=== PATIENT | male | born 1945 | race Caucasian/White ===

== ENCOUNTER → 2017-11-28 17:19 | Outpatient (REF) | payer MEDICARE, OTHER, SELFPAY ==
[2017-11-28 20:33] LABS: Anion Gap 10.6 mmol/L (3-11); BUN 23 mg/dL (7-18); CO2 23.4 mmol/L (21.0-32.0); CREATININE 1.37 mg/dL (0.70-1.30); Calcium 8.9 mg/dL (8.5-10.1); Chloride 105 mmol/L (98-107); Estimated GFR 50.79 (mL/min/1.73m2); Glucose 108 mg/dL (70-100); Potassium 4.7 mmol/L (3.5-5.1); Sodium 139 mmol/L (136-145)
== END ==
LOC: NCHCN 17:19
PROVIDERS: PCP Internal Medicine; Visit Provider Internal Medicine
DX: I10 Essential (primary) hypertension (principal)
CPT/HCPCS: 80048

== ENCOUNTER 2017-11-29 22:41 | Emergency (ER) | payer MEDICARE, OTHER, SELFPAY ==
[2017-11-29 22:43] VITALS: BP 200/129; PULSE 88; RESP 14; TEMP 37; O2SAT 98
[2017-11-29 22:48] VITALS: RESP 14
--- NOTE | 2017-11-29 22:58 | ED.GENADUL ---
Disposition Clinical Impression: Hypertension Disposition: HOME Condition: Good Instructions: Hypertension (ED) Additional Instructions: You were given 5 mg of lisinopril this evening. Begin 5 mg of lisinopril daily for the next 2 days until seen in follow-up. Please follow-up with [facility] Friday as planned. Return if you develop persistent headache, changes to vision, chest pain, or any other acute concerns. Medical Decision Making - Medical Decision Making 72-year-old male who is noted climbing blood pressures over days time for which he was started on 10 mg of daily lisinopril yesterday. Did not take the medication today due to concerns of hypotension. He now presents with hypertension approximately 200/100. He has an unremarkable neurologic examination and is otherwise well. Reviewed available data. Labs drawn on November 28: Sodium 139, potassium 4.7, chloride 105, bicarb 23, BUN 23, creatinine 1.3, slightly elevated over recent baseline of 1.1-1.2 Patient given 5 mg of lisinopril, observed, blood pressure repeated and is 140/93. He has an appointment for follow-up with Dr. Michael on Friday. We will back off on the lisinopril to 5 mg once a day for the next 2 days and he will see Dr. Michael as planned on Friday. Discussed with him the danger of abruptly lowering blood pressure. He is stable for discharge home Please note: Jewel Inserter/documentation created with [employer] software. There may be voice to text translation errors in this documentation. History of Present Illness - General Chief complaint: GenMedical Stated complaint: HIGH BP/STATUS POST CARDIAC SURG JULY Time Seen by Provider: 11/29/17 22:44 Source: patient, RN notes reviewed Mode of arrival: ambulatory Limitations: no limitations - History of Present Illness Initial comments: High blood pressure: 72-year-old male who has noted the gradual onset of blood pressures approximately 180-200/100-120 over 7-10 days time. He was seen at the [facility] last night, screening labs obtained, and he was started on 10 mg of lisinopril which he states lowered his blood pressure to the 90-100 Fred systolic over 24 hours. This evening he felt resurgent high blood pressure, but was concerned about the potential abrupt lowering of blood pressure and did not take his second dose of lisinopril. He describes a mild, throbbing, frontal headache that he is describes as 2 out of 10. It is nonradiating, no associated other symptoms including a lack of fever, vomiting. - Related Data Albuterol [Proventil Hfa] 200 puff IH DAILY PRN 12/23/13 Fluticasone Propionate [Flovent Diskus] 50 mcg IH DAILY 12/23/13 Aspirin 325 mg PO DAILY 08/17/17 Atorvastatin [Lipitor] 20 mg PO HS 08/17/17 Albuterol Sulfate [Proair Respiclick] 90 mcg IH BID 10/21/17 Fluticasone Propionate [Flovent 44mcg] 2 puff IH BID #1 inhaler 10/21/17 Salmeterol [Serevent Diskus] 1 puff IH Q12H PRN disk 10/21/17 Lisinopril [Prinivil] 10 mg PO DAILY 11/29/17 Allergies Allergy/AdvReac Type Severity Reaction Status Date / Time metoprolol Allergy Severe HEART Unverified 11/29/17 22:47 PAUSED Review of Systems Other: 6 systems reviewed, otherwise neg General Exam - General Limitations: no limitations General appearance: alert, in no apparent distress - Head Head exam: Present: atraumatic, normocephalic - Eye Eye exam: Present: normal apperance, PERRL, EOMI - ENT ENT exam: Present: normal exam - Neck Neck exam: Present: normal inspection - Respiratory Respiratory exam: Present: normal lung sounds bilaterally. Absent: respiratory distress - Cardiovascular Cardiovascular Exam: Present: regular rate, normal rhythm - GI/Abdominal GI/Abdominal exam: Present: soft. Absent: distended - Extremities Exam Extremities exam: Present: normal inspection - Neurological Exam Neurological exam: Present: alert, oriented X3 - Psychiatric Psychiatric exam: Present: normal affect, normal mood - Skin Skin exam: Present: warm, dry, intact Course Vital Signs - 24 hr 11/29/17 11/29/17 22:43 22:48 Temperature 37 C Pulse 88 Respiratory 14 14 Rate Blood Pressure 200/129 Pulse Oximetry 98
--- NOTE | 2017-11-29 23:01 | ED.GENADUL_ITS ---
Disposition Clinical Impression: Hypertension Disposition: HOME Condition: Good Instructions: Hypertension (ED) Additional Instructions: You were given 5 mg of lisinopril this evening. Begin 5 mg of lisinopril daily for the next 2 days until seen in follow-up. Please follow-up with [facility] Friday as planned. Return if you develop persistent headache, changes to vision, chest pain, or any other acute concerns. Medical Decision Making - Medical Decision Making 72-year-old male who is noted climbing blood pressures over days time for which he was started on 10 mg of daily lisinopril yesterday. Did not take the medication today due to concerns of hypotension. He now presents with hypertension approximately 200/100. He has an unremarkable neurologic examination and is otherwise well. Reviewed available data. Labs drawn on November 28: Sodium 139, potassium 4.7, chloride 105, bicarb 23, BUN 23, creatinine 1.3, slightly elevated over recent baseline of 1.1-1.2 Patient given 5 mg of lisinopril, observed, blood pressure repeated and is 140/ 93. He has an appointment for follow-up with Dr. Michael on Friday. We will back off on the lisinopril to 5 mg once a day for the next 2 days and he will see Dr. Michael as planned on Friday. Discussed with him the danger of abruptly lowering blood pressure. He is stable for discharge home Please note: Ship Fitter/documentation created with [employer] software. There may be voice to text translation errors in this documentation. History of Present Illness - General Chief complaint: GenMedical Stated complaint: HIGH BP/STATUS POST CARDIAC SURG JULY Time Seen by Provider: 11/29/17 22:44 Source: patient, RN notes reviewed Mode of arrival: ambulatory Limitations: no limitations - History of Present Illness Initial comments: High blood pressure: 72-year-old male who has noted the gradual onset of blood pressures approximately 180-200/100-120 over 7-10 days time. He was seen at the [facility] last night, screening labs obtained, and he was started on 10 mg of lisinopril which he states lowered his blood pressure to the 90-100 Fred systolic over 24 hours. This evening he felt resurgent high blood pressure, but was concerned about the potential abrupt lowering of blood pressure and did not take his second dose of lisinopril. He describes a mild, throbbing, frontal headache that he is describes as 2 out of 10. It is nonradiating, no associated other symptoms including a lack of fever, vomiting. - Related Data Albuterol [Proventil Hfa] 200 puff IH DAILY PRN 12/23/13 Fluticasone Propionate [Flovent Diskus] 50 mcg IH DAILY 12/23/13 Aspirin 325 mg PO DAILY 08/17/17 Atorvastatin [Lipitor] 20 mg PO HS 08/17/17 Albuterol Sulfate [Proair Respiclick] 90 mcg IH BID 10/21/17 Fluticasone Propionate [Flovent 44mcg] 2 puff IH BID #1 inhaler 10/21/17 Salmeterol [Serevent Diskus] 1 puff IH Q12H PRN disk 10/21/17 Lisinopril [Prinivil] 10 mg PO DAILY 11/29/17 Allergies Allergy/AdvReac Type Severity Reaction Status Date / Time metoprolol Allergy Severe HEART Unverified 11/29/17 22:47 PAUSED Review of Systems Other: 6 systems reviewed, otherwise neg General Exam - General Limitations: no limitations General appearance: alert, in no apparent distress - Head Head exam: Present: atraumatic, normocephalic - Eye Eye exam: Present: normal apperance, PERRL, EOMI - ENT ENT exam: Present: normal exam - Neck Neck exam: Present: normal inspection - Respiratory Respiratory exam: Present: normal lung sounds bilaterally. Absent: respiratory distress - Cardiovascular Cardiovascular Exam: Present: regular rate, normal rhythm - GI/Abdominal GI/Abdominal exam: Present: soft. Absent: distended - Extremities Exam Extremities exam: Present: normal inspection - Neurological Exam Neurological exam: Present: alert, oriented X3 - Psychiatric Psychiatric exam: Present: normal affect, normal mood - Skin Skin exam: Present: warm, dry, intact Course Vital Signs - 24 hr 11/29/17 11/29/17 22:43 22:48 Temperature 37 C Pulse 88 Respiratory 14 14 Rate Blood Pressure 200/129 Pulse Oximetry 98
[2017-11-29] MEDS: Lisinopril 5 MG TAB PO (23:11)
[2017-11-30 00:51] VITALS: BP 140/72; PULSE 80; RESP 18; O2SAT 98
== END 2017-11-29 23:50 | disposition home or self-care (01) ==
PROVIDERS: Emergency Provider Emergency Medicine; PCP Internal Medicine
DX: I10 Essential (primary) hypertension (principal); Z91.128 Patient's intentional underdosing of medication regimen for other reason
CPT/HCPCS: 99283 ×2

== ENCOUNTER 2017-12-12 11:33 | Outpatient (RCR) | payer MEDICARE, OTHER, SELFPAY | END 2017-12-12 23:59 | disposition home or self-care (01) | LOC: CR 11:33 | PROVIDERS: PCP Internal Medicine; Visit Provider Family Medicine | DX: Z95.828 Presence of other vascular implants and grafts (principal); Z51.89 Encounter for other specified aftercare | CPT/HCPCS: S9472 ==

== ENCOUNTER 2017-12-24 12:52 | Outpatient (RCR) | payer MEDICARE, OTHER, SELFPAY | END 2018-01-11 23:59 | disposition home or self-care (01) | LOC: CR 12:52 | PROVIDERS: PCP Internal Medicine; Visit Provider Family Medicine | DX: Z95.828 Presence of other vascular implants and grafts (principal); Z51.89 Encounter for other specified aftercare | CPT/HCPCS: S9472 ==

== ENCOUNTER 2018-02-11 13:23 | Outpatient (REF) | payer MEDICARE, OTHER, SELFPAY ==
[2018-02-11 14:09] LABS: Anion Gap 6.6 mmol/L (3-11); BUN 29 mg/dL (7-18); CO2 29.4 mmol/L (21.0-32.0); CREATININE 1.28 mg/dL (0.70-1.30); Calcium 8.7 mg/dL (8.5-10.1); Chloride 103 mmol/L (98-107); Estimated GFR 54.94 (mL/min/1.73m2); Glucose 100 mg/dL (70-100); Potassium 4.3 mmol/L (3.5-5.1); Sodium 139 mmol/L (136-145)
== END 2018-02-11 13:43 ==
LOC: NCHCN 13:23
PROVIDERS: PCP Internal Medicine; Visit Provider Internal Medicine
DX: I10 Essential (primary) hypertension (principal)
CPT/HCPCS: 80048

== ENCOUNTER 2018-06-25 19:26 | Outpatient (REF) | payer MEDICARE, OTHER, SELFPAY ==
[2018-06-25 12:38] LABS: Abs Immature Grans 0.01 k/cumm (0.0-0.09); Absolute Basophil Count 0.04 k/cumm (0.0-0.2); Absolute Lymphocyte Count 1.58 k/cumm (1.2-3.4); Absolute Monocyte Count 0.82 k/cumm (0.11-0.7); Absolute Neutrophil Count 4.33 k/cumm (1.2-6.7); Basophils % 0.6; Eosinophils % 2.9; HCT 45.6 % (40.0-50.0); Immature Grans % 0.1; Lymphocytes % 22.6; Mean Corp. HGB Concentration 32.9 g/dL (32.0-36.0); Mean Corpuscular Hemoglobin 27.9 pg (27.0-33.0); Mean Corpuscular Volume 84.8 fL (80-95); Mean Platelet Volume 10.6 fL (8.0-11.0); Monocytes % 11.7; Neutrophils % 62.1; Platelet Count 213 x1000/uL (130-400); RBC 5.38 m/cumm (4.50-6.00); RBC Distribution Width 14.9 % (11.8-14.1); White Blood Cell Count 6.98 k/cumm (4.4-10.8)
[2018-06-25 13:13] LABS: ALT 38 U/L (12-78); AST 36 U/L (15-37); Albumin 3.4 g/dL (3.4-5.0); Alkaline Phosphatase 37 U/L (46-116); Anion Gap 8.4 mmol/L (3-11); BUN 20 mg/dL (7-18); Bilirubin, Total 0.4 mg/dL (0.2-1.0); CO2 28.6 mmol/L (21.0-32.0); CREATININE 1.35 mg/dL (0.70-1.30); Calcium 8.9 mg/dL (8.5-10.1); Chloride 105 mmol/L (98-107); Estimated GFR 51.66 (mL/min/1.73m2); Glucose 92 mg/dL (70-100); Potassium 4.4 mmol/L (3.5-5.1); Sodium 142 mmol/L (136-145); TSH 3.52 uIU/mL (0.358-3.74); Total Protein 6.8 g/dL (6.4-8.2)
[2018-06-25 13:31] LABS: FREE T4 0.76 ng/dL (0.76-1.46)
== END 2018-06-25 19:46 ==
LOC: NCHCN 19:26
PROVIDERS: PCP Internal Medicine; Visit Provider Internal Medicine
DX: R53.83 Other fatigue (principal)
CPT/HCPCS: 80053; 84439; 84443; 85025

== ENCOUNTER 2018-08-21 16:41 | Emergency (ER) | payer MEDICARE, OTHER, SELFPAY ==
[2018-08-21] VITALS (12 sets, daily range): BP systolic 112–168; BP diastolic 68–98; PULSE 54–102; RESP 12–20; TEMP 36.7–36.8; O2SAT 94–100
--- NOTE | 2018-08-21 17:02 | DI.CT_ITS ---
SYMPTOMS/DIAGNOSIS: TRAUMA S/P FALL ON BACK CT OF THE CHEST, ABDOMEN AND PELVIS: CHEST CT: No rib or spine fracture or pneumothorax is seen. There are no pleural or pericardial effusions or focal infiltrates. There is no evidence of adenopathy. There is an aortic valve prosthesis. There is no evidence of aneurysm. Coronary artery calcifications are noted. A 4 mm nodule is noted in the right lower lobe posteriorly. Sternal wires are noted. IMPRESSION: No posttraumatic abnormality. A 4 mm nodule. If the patient is at high risk for cancer, a CT could be performed in 12 months. ABDOMEN AND PELVIS CT: The liver, spleen, pancreas, kidneys, adrenals and gallbladder are unremarkable. There is an incidental small right renal cyst. No stones or hydronephrosis are seen. There is no evidence of bowel dilatation, wall thickening, free air or free fluid. There are bilateral L5 pars defects, which appear old. There are endplate osteophytes at multiple levels. No acute spinal or pelvic fractures are identified. A right hydrocele is partially included on the exam. The bladder and prostate are unremarkable. The aorta and iliac artery show calcifications, but are normal in diameter. IMPRESSION: No acute abnormality.
--- NOTE | 2018-08-21 17:15 | DI.RAD_ITS ---
SYMPTOMS/DIAGNOSIS: FALL LEFT ELBOW: A soft tissue wound is seen overlying the olecranon process. There is a prominent spur from the olecranon. No fracture or joint effusion is seen. IMPRESSION: Soft tissue wound over the olecranon.
--- NOTE | 2018-08-21 17:15 | W.ED.GENAD ---
Discharge Plan Disposition Patient Disposition: HOME Condition: Stable Discharge Details Chief Complaint: Nk/Back Pain Clinical Impression: Traumatic hematoma of lower back, Laceration of elbow Primary Care Provider: Casey Michael ED Provider: Emmanuel Luong Home Meds and New Rx's Prescriptions: Continued Flovent HFA 10.6 GM HFA aerosol inhaler 2 puff Inhalation BID Qty: 1 RF: 3 Serevent Diskus 50 MCG blister with device 1 puff Inhalation Q12H PRN RF: 0 ProAir RespiClick 90 MCG aerosol powdr breath activated 90 mcg Inhalation BID RF: 0 albuterol sulfate [Proventil HFA] 1 PUFF HFA aerosol inhaler 200 puff Inhalation DAILY PRN RF: 0 Flovent Diskus 50 MCG blister with device 50 mcg Inhalation DAILY RF: 0 lisinopril 10 MG tablet 10 mg PO DAILY RF: 0 atorvastatin [Lipitor] 20 MG tablet 20 mg PO HS RF: 0 aspirin 325 MG tablet 325 mg PO DAILY RF: 0 Discharge Instructions Instructions: Laceration (ED), Contusion in Adults (ED) Additional Instructions: Return immediately to the emergency department for any new or worsening symptoms, neurological dysfunction, changes in bowel or bladder function or any further concerns. Otherwise you may continue to use Tylenol for pain, You may take 650 mg every 6 hours or 1000mg every 8hours. Follow-up with your primary care provider next week for reassessment. Return to emergency department in 12 to 14 days for suture removal. Referrals: [facility] Emergency Dept. [Outside] (12 to 14 days for suture removal) Casey Michael MD [Primary Care Provider] - (As needed for reassessment) Discharge Data Discharge Date/Time-TO BE ENTERED AT DEPARTURE: 08/21/18 22:06 Medical Decision Making Patient presenting the emergency department for chief complaint of slip and fall with back pain. Patient was going down some stairs and slipped landing on his mid back and his left elbow. He states initially that this knocked the wind out of him and cause some difficulty breathing which resolved but has had continued back pain and spasms along with swelling to his back since the incident occurred. He does state a laceration to his elbow but states that that feels minor. Physical exam shows a significant amount of midline swelling and tenderness to the lower thoracic and upper lumbar spine, no neurological deficits, no abdominal pain. Left elbow has approximately 4 cm flap laceration but otherwise full range of motion and only mild tenderness to the olecranon. Exam is otherwise unremarkable. Given the significant deformity to the midline back I am concerned for significant trauma so trauma imaging of the chest abdomen pelvis was ordered with labs and IV. Patient states he only wants Tylenol pending results. Plan to also image left elbow prior to laceration repair. Patient has no signs of respiratory distress or neurological dysfunction at this time. medical staff services coordinator placed EKG ordered per protocol for noticing an abnormality on monitor. EKG reviewed with attending physician Dr. Akins and shows rate of 55, sinus bradycardia, otherwise within normal limits and non-diagnostic. Review radiological imaging of elbow shows no acute fracture. Laceration was repaired. Review of CT scan shows a posterior hematoma without evidence of acute fracture. 1. 1.5 cm right renal cyst. 2. no fractures or organ injury 3. Right hydrocele. 4. Distal colonic diverticulosis without diverticulitis. 5. 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 Patient reassessed and states improvement of discomfort after receiving Tylenol. Patient is still neurologically intact with no new or worsening symptoms. I feel the patient is able to be safely discharged. Return precautions were discussed. After discussion of diagnosis and plan of care patient is no further needs, questions, or concerns and states clear understanding to return to the emergency department for any worsening symptoms. HPI General Mode of arrival: ambulatory. Date/Time Provider Initiated Documentation: 08/21/18 16:41. Limitations to Documentation: no limitations. Information obtained by: patient and RN notes reviewed. History of Present Illness 73 year old M presents to the emergency department with the chief complaint of back pain, described as moderate, with intensity rated at 5. Quality is described as aching, and is localized to the back. Patient started experiencing this hour(s) (4) and it has been constant. No relieving factors improve symptom(s), Movement worsens symptoms . Patient notes no other symptoms.. Patient did receive the following treatments prior to arrival, Aspirin Related Data Home Medications Medication Instructions Recorded Confirmed Flovent Diskus 50 mcg INHALATION DAILY 12/23/13 08/21/18 albuterol sulfate [Proventil HFA] 200 puff INHALATION DAILY PRN 12/23/13 08/21/18 aspirin 325 mg PO DAILY 08/17/17 08/21/18 atorvastatin [Lipitor] 20 mg PO HS 08/17/17 08/21/18 Flovent HFA 2 puff INHALATION BID #1 inhaler 10/21/17 08/21/18 ProAir RespiClick 90 mcg INHALATION BID 10/21/17 08/21/18 Serevent Diskus 1 puff INHALATION Q12H PRN disk 10/21/17 08/21/18 lisinopril 10 mg PO DAILY 11/29/17 08/21/18 Allergies Allergy/AdvReac Type Severity Reaction Status Date / Time metoprolol Allergy Severe HEART Unverified 08/21/18 16:49 PAUSED General Stated Complaint: Nk/Back Pain ANNA: 3 Review of Systems Constitutional Denies chills, Denies fever(s), Denies frequent falls and Denies snoring Cardiovascular Denies chest pain, Denies syncope and Reports dyspnea (Initially after event occurred but now resolved) Respiratory Denies cough, Reports dyspnea (Initially after event occurred but now resolved), Denies snoring, Denies stridor and Denies wheezing Gastrointestinal Denies abdominal pain, Denies change in bowel habits, Denies diarrhea and Denies nausea Genitourinary Denies difficulty urinating Musculoskeletal Reports as per HPI, Reports back pain, Reports muscle cramps, Denies muscle weakness, Denies numbness and Denies tingling Neurologic Denies confusion, Denies syncope, Denies frequent falls, Denies memory loss, Denies numbness, Denies sensory deficit and Denies tingling Psychiatric Denies confusion and Denies memory loss Allergic/Immunologic Denies wheezing [facility] Medical History Hyperlipidemia (Acute) Asthma (Chronic) Hypertension (Chronic) Surgical History Hx of aortic aneurysm repair (Acute) Hx of aortic valve replacement (Acute) Social History Smoking/Tobacco Use Status: Never Alcohol Intake: never Drug use: Never Substance use type: does not use Do you feel safe at home: Yes Do you feel safe in your relationship?: Yes Exam Const General: cooperative and no acute distress Orientation: alert, awake and oriented x3 Neck Neck: normal visual inspection, full ROM and no meningeal signs Resp Effort & Inspection: normal respiratory effort Auscultation: clear to auscultation bilaterally Cardio Rate: regular rate Rhythm: regular rhythm Heart Sounds: S1 normal and S2 normal GI Palpation: no hepatosplenomegaly, no aortic enlargement, no masses and no pulsatile masses Back/Spine/Pelvis Cervical Spine: normal cervical lordosis, cervical ROM normal and No pain with cervical ROM Thoracic/Lumbar Spine: pain with thoraco-lumbar ROM, paraspinal tenderness (Mid), thoraco-lumbar ROM limited, thoracic spinal tenderness (Lower thoracic), lumbar spinal tenderness (Upper lumbar) and other (midline deformity and tenderness to lower thoracic/upper lumbar) Pelvis: no pain with anterior-posterior compression and no pain with lateral compression Sacrum: no ecchymosis Coccyx: no swelling Extrem Left upper extremity: elbow/forearm Details: tenderness Location: of the olecranon, normal ROM and laceration (4cm); no deformity Right lower extremity: normal to inspection and normal capillary refill Left lower extremity: normal to inspection and normal capillary refill Course Vital Signs Temperature 36.8 C 08/21/18 16:45 Pulse 68 08/21/18 16:45 Respiratory Rate 20 08/21/18 16:45 Blood Pressure 168/98 H 08/21/18 16:45 Pulse Oximetry 97 08/21/18 16:45 Temperature 36.8 C 08/21/18 16:45 Temperature Source Temporal Artery Scan 08/21/18 16:45 Pulse 68 08/21/18 16:45 Respiratory Rate 20 08/21/18 16:45 Respiratory Effort Non-Labored 08/21/18 16:45 Blood Pressure 168/98 H 08/21/18 16:45 Blood Pressure Position Sitting 08/21/18 16:45 Pulse Oximetry 97 08/21/18 16:45 Oxygen Delivery Method Room Air 08/21/18 16:45 Oxygen Flow Rate 0 08/21/18 16:45 Pain Level 10 08/21/18 16:45 Procedures Laceration Left elbow: Site: upper extremity Side (If applicable): left Size (cm): 4 Description: flap Depth: simple, single layer Local Anesthetic: Lidocaine 1% Amount of anesthesia used (mL): 8 Pre-repair: wound explored, irrigated extensively and deep structures intact Skin layer closed with: nylon Size (cm): 3-0 Number of sutures: 5 Technique: simple, interrupted
[2018-08-21 17:24] LABS: Abs Immature Grans 0.02 k/cumm (0.0-0.09); Absolute Basophil Count 0.03 k/cumm (0.0-0.2); Absolute Eosinophil Count 0.09 k/cumm (0.0-0.7); Absolute Monocyte Count 0.85 k/cumm (0.11-0.7); Absolute Neutrophil Count 7.93 k/cumm (1.2-6.7); Basophils % 0.3; Eosinophils % 0.9; HCT 42.7 % (40.0-50.0); HGB 14.5 g/dL (13.5-17.5); Immature Grans % 0.2; Lymphocytes % 11.9; Mean Corpuscular Hemoglobin 28.8 pg (27.0-33.0); Mean Corpuscular Volume 84.9 fL (80-95); Mean Platelet Volume 9.9 fL (8.0-11.0); Monocytes % 8.4; Neutrophils % 78.3; Platelet Count 194 x1000/uL (130-400); RBC 5.03 m/cumm (4.50-6.00); RBC Distribution Width 14.8 % (11.8-14.1); White Blood Cell Count 10.12 k/cumm (4.4-10.8)
[2018-08-21] MEDS: Acetaminophen 325 MG TAB 650 MG PO (17:26)
[2018-08-21] MEDS: Normal Saline Flush 10 ML SYR IVP (17:27)
[2018-08-21 17:36] LABS: ALT 35 U/L (12-78); AST 40 U/L (15-37); Albumin 3.6 g/dL (3.4-5.0); Alkaline Phosphatase 34 U/L (46-116); Anion Gap 7.9 mmol/L (3-11); BUN 18 mg/dL (7-18); Bilirubin, Total 0.6 mg/dL (0.2-1.0); CO2 27.1 mmol/L (21.0-32.0); Calcium 8.8 mg/dL (8.5-10.1); Chloride 103 mmol/L (98-107); Estimated GFR 53.82 (mL/min/1.73m2); Glucose 109 mg/dL (70-100); Sodium 138 mmol/L (136-145); Total Protein 7.3 g/dL (6.4-8.2)
[2018-08-21] MEDS: Omnipaque 350 MG/ML 100 ML BTL IJ (17:48)
--- NOTE | 2018-08-21 18:16 | DI.VRAD_ITS ---
Addendum created by Jarrett Castle MD on 08/21/2018 9:13:30 PM EDT There is a midline posterior hematoma measuring 3 x 6 x 9 cm at the level of T11-L1. There is no associated fracture. Initial report created on 08/21/2018 6:15:46 PM EDT EXAM: CT Chest With Contrast EXAM DATE/TIME: 08/21/2018 5:05 PM CLINICAL HISTORY: 73 years old, male; Injury or trauma; Initial encounter; Generalized; Blunt trauma (contusions or hematomas); Prior surgery; Patient HX: Trauma, fall on back TECHNIQUE: Imaging protocol: Axial computed tomography images of the chest with intravenous contrast. Coronal and sagittal reformatted images were created and reviewed. COMPARISON: No relevant prior studies available. FINDINGS: Lungs: 4 mm nodule in the posterior segment of the right upper lobe (4/19). Pleural space: Normal. No pneumothorax. No pleural effusion. Heart: Normal. No cardiomegaly. No pericardial effusion. Pulmonary arteries: Subsegmental atelectatic changes at the pulmonary bases. Aorta: Aortic valve replacement. Aortic atherosclerosis. Lymph nodes: Unremarkable. No enlarged lymph nodes. Bones/joints: Sternotomy. Degenerative changes in the spine. Soft tissues: Unremarkable. IMPRESSION: 1. Pulmonary nodule. For patients at low risk (minimal or absent history of smoking and of other known risk factors), no routine follow-up is indicated. For patients at high risk (history of smoking or of other known risk factors), consider optional CT at 12 months. (Mari et al., Fleischner Society, 2017) 2. no fractures EXAM: CT Abdomen and Pelvis With Contrast EXAM DATE/TIME: 08/21/2018 5:05 PM CLINICAL HISTORY: 73 years old, male; Injury or trauma; Initial encounter; Generalized; Blunt trauma (contusions or hematomas); Prior surgery; Patient HX: Trauma, fall on back TECHNIQUE: Imaging protocol: Axial computed tomography images of the abdomen and pelvis with intravenous contrast. Coronal and sagittal reformatted images were created and reviewed. COMPARISON: No relevant prior studies available. FINDINGS: ABDOMEN: Liver: Normal. No mass. Gallbladder and bile ducts: Normal. No calcified stones. No ductal dilation. Pancreas: Normal. No ductal dilation. Spleen: Normal. No splenomegaly. Adrenals: Normal. No mass. Kidneys and ureters: 1.5 cm right renal cyst. Stomach and bowel: Distal colonic diverticulosis without diverticulitis. Appendix: No evidence of appendicitis. PELVIS: Bladder: Unremarkable as visualized. Reproductive: Right hydrocele. ABDOMEN and PELVIS: Intraperitoneal space: Normal. No free air. No significant fluid collection. Bones/joints: Bilateral pars defects of L5 with retrolisthesis of L5 on S1. Soft tissues: Unremarkable. Vasculature: Atherosclerosis. Lymph nodes: Normal. No enlarged lymph nodes. IMPRESSION: 1. 1.5 cm right renal cyst. 2. no fractures or organ injury 3. Right hydrocele. 4. Distal colonic diverticulosis without diverticulitis. 5. 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 Dictated and Authenticated by: Jarrett Castle MD. Ordering:BRYSON Benitez MD
--- NOTE | 2018-08-21 18:17 | DI.VRAD_ITS ---
EXAM: XR Left Elbow Complete, 3 or more Views EXAM DATE/TIME: 08/21/2018 5:16 PM CLINICAL HISTORY: 73 years old, male; Injury or trauma; Fall; Initial encounter; Blunt trauma (contusions or hematomas; Elbow; Left; Injury date: 08/21/2018 TECHNIQUE: Imaging protocol: XR Left elbow. Views: 3 or more views. COMPARISON: No relevant prior studies available. FINDINGS: Bones/joints: No joint effusion. Soft tissues: Enthesopathy at insertion of the Achilles tendon. Soft tissue injury overlying the olecranon process. IMPRESSION: 1. No definite fracture. 2. Enthesopathy at insertion of the Achilles tendon. 3. Soft tissue injury overlying the olecranon process. Dictated and Authenticated by: Jarrett Castle MD. Ordering:BRYSON Benitez MD
[2018-08-21 19:06] LABS: Bilirubin Negative (Negative); Blood Negative (Negative); Clarity Clear; Glucose Negative (Negative); Ketones Negative (Negative); Leukocyte Esterase Negative (Negative); Nitrite Negative (Negative); Urobilinogen 0.2 EU/dL (Up TO 0.2); pH 6.5 (5-8)
== END 2018-08-21 22:06 | disposition home or self-care (01) ==
PROVIDERS: Emergency Provider Nurse Practitioner Family; PCP Internal Medicine
DX: S30.0XXA Contusion of lower back and pelvis, initial encounter (principal); S51.012A Laceration without foreign body of left elbow, initial encounter; R22.2 Localized swelling, mass and lump, trunk; W10.8XXA Fall (on) (from) other stairs and steps, initial encounter; I10 Essential (primary) hypertension
CPT/HCPCS: 36415; 74177; 80053; 90471; 93005; 99285; 71260; 73080; 81003; 85025; 93010; 99284; J3490

== ENCOUNTER 2018-09-04 14:00 | Emergency (ER) | payer MEDICARE, OTHER, SELFPAY ==
--- NOTE | 2018-09-04 14:06 | NUR.NOTE ---
pt here for suture removal 14 days post suture left elbow
--- NOTE | 2018-09-04 14:10 | W.ED.GENAD ---
Discharge Plan Disposition Patient Disposition: HOME Condition: Improving Discharge Details Chief Complaint: SutureRem Clinical Impression: Visit for suture removal, Hypertension Primary Care Provider: Casey Michael ED Provider: Mario Akins Home Meds and New Rx's Prescriptions: New cephalexin 500 mg capsule 500 mg PO TID 7 Days Qty: 21 RF: 0 Continued Flovent HFA 10.6 GM HFA aerosol inhaler 2 puff Inhalation BID Qty: 1 RF: 3 Serevent Diskus 50 MCG blister with device 1 puff Inhalation Q12H PRN RF: 0 ProAir RespiClick 90 MCG aerosol powdr breath activated 90 mcg Inhalation BID RF: 0 albuterol sulfate [Proventil HFA] 1 PUFF HFA aerosol inhaler 200 puff Inhalation DAILY PRN RF: 0 Flovent Diskus 50 MCG blister with device 50 mcg Inhalation DAILY RF: 0 lisinopril 10 MG tablet 10 mg PO DAILY RF: 0 atorvastatin [Lipitor] 20 MG tablet 20 mg PO HS RF: 0 aspirin 325 MG tablet 325 mg PO DAILY RF: 0 Discharge Instructions Instructions: Hypertension (ED) Additional Instructions: Please follow-up with the [facility] for recheck. Please take Keflex as prescribed. Record daily blood pressures. Continue your regular medications. Return for any acute concern Medical Decision Making 73-year-old male presents from home with 2 complaints. One, he is here for suture removal of left elbow after fall and traumatic injury 2 weeks ago. At that time he suffered a lower thoracic dorsal hematoma that is slowly been resolving. Finally, he reports high blood pressure last night with associated transient chest discomfort that was brief and self resolved. No recurrence. Sutures removed without difficulty and wound appears well-appearing. The elbow slightly swollen, has had bursitis in the past, and as well has thoracic aortic grafting. He may have developing cellulitis and given the risk of hardware infection, I will place him on a brief course of Keflex to ensure good wound healing. Screening EKG and laboratories obtained. EKG is unremarkable normal sinus rhythm. Troponin is negative. Remainder of laboratories are reassuring: White blood cell count 7, hematocrit 38, platelets 243. Sodium 140, potassium 3.9, chloride 106, bicarb 22, BUN 20, creatinine 1.1, LFTs unremarkable. Patient remains symptom-free. I will have him use a diary to record blood pressures at home. He is to return if he has recurrent chest discomfort. We did discuss that he had not eaten dinner last night and this possibly had some esophageal spasm. He is stable and improved, appropriate for discharge to home. To follow-up with [facility]. Finally, he does have a large posterior thoracic midline hematoma from recent injury. I will refer to general surgery as he may require an interval/deferred drainage. ECG Data Attestation: I personally reviewed and interpreted this ECG (s) as follows: Interpretation: Normal sinus rhythm with a rate of 60, the QRS is narrow, there is no ST segment elevation present. HPI General Mode of arrival: ambulatory. Date/Time Provider Initiated Documentation: 09/04/18 14:03. Limitations to Documentation: no limitations. Information obtained by: patient. History of Present Illness 73 year old M presents to the emergency department with the chief complaint of Left elbow suture removal, patient reports transient chest pain and high bp, described as mild, Quality is described as dull, and is localized to the chest. Patient reports no radiation. Patient started experiencing this minute(s) and it has been now resolved. No exacerbating factors reported . Patient notes no other symptoms.. Patient did receive the following treatments prior to arrival, none Related Data Home Medications Medication Instructions Recorded Confirmed Flovent Diskus 50 mcg INHALATION DAILY 12/23/13 09/04/18 albuterol sulfate [Proventil HFA] 200 puff INHALATION DAILY PRN 12/23/13 09/04/18 aspirin 325 mg PO DAILY 08/17/17 09/04/18 atorvastatin [Lipitor] 20 mg PO HS 08/17/17 09/04/18 Flovent HFA 2 puff INHALATION BID #1 inhaler 10/21/17 09/04/18 ProAir RespiClick 90 mcg INHALATION BID 10/21/17 09/04/18 Serevent Diskus 1 puff INHALATION Q12H PRN disk 10/21/17 09/04/18 lisinopril 10 mg PO DAILY 11/29/17 09/04/18 cephalexin 500 mg PO TID 7 Days #21 cap 09/04/18 Previous Rx's Medication Instructions Recorded cephalexin 500 mg PO TID 7 Days #21 cap 09/04/18 Allergies Allergy/AdvReac Type Severity Reaction Status Date / Time metoprolol Allergy Severe HEART Unverified 09/04/18 14:21 PAUSED General ANNA: 3 Review of Systems Review of Systems No fever or chills. No cough. States that he is otherwise recently been well. He has a hematoma of the lower thoracic/lumbar spine which is improving. 6 systems reviewed and otherwise neg [facility] Medical History Hyperlipidemia (Acute) Asthma (Chronic) Hypertension (Chronic) Surgical History Hx of aortic aneurysm repair (Acute) Hx of aortic valve replacement (Acute) Social History Smoking/Tobacco Use Status: Never Alcohol Intake: never Drug use: Never Substance use type: does not use Do you feel safe at home: Yes Do you feel safe in your relationship?: Yes Exam Narrative Exam Narrative: GEN: awake, alert, oriented 3. Pleasant, well groomed, interactive. HEAD: Normocephalic, atraumatic ENT: Mucous membranes moist, oropharynx unremarkable, External ear exam unremarkable EYES: PERRL, EOMI NECK: Full ROM, no JUAN JOSE, no menigismus CHEST/RESP: Nontender, clear to auscultation bilateral, no wheeze/rhonchi/rales CARDIOVASCULAR: RRR, no murmur, rub chano. 2+ Rad pulse bilateral ABDOMEN: Soft, nontender, no mass. +Bowel sounds EXT: Full ROM, no edema, no rash. Mildly enlarged left olecranon bursa, left elbow with healing laceration, sutures in place. No sniffing surrounding erythema. Back: Resolving hematoma inferior thoracic spine with dependent ecchymosis present Neuro: Grossly normal neurologic exam, conversant, interactive. Psych: Speech fluent, thoughts congruent, affect normal
[2018-09-04 14:11] VITALS: BP 131/79; PULSE 64; RESP 18; TEMP 36.8; O2SAT 95
--- NOTE | 2018-09-04 14:13 | ED.GENADUL_ITS ---
Discharge Plan Disposition Patient Disposition: HOME Condition: Improving Discharge Details Chief Complaint: SutureRem Clinical Impression: Visit for suture removal, Hypertension Primary Care Provider: Casey Michael ED Provider: Mario Akins Home Meds and New Rx's Prescriptions: New cephalexin 500 mg capsule 500 mg PO TID 7 Days Qty: 21 RF: 0 Continued Flovent HFA 10.6 GM HFA aerosol inhaler 2 puff Inhalation BID Qty: 1 RF: 3 Serevent Diskus 50 MCG blister with device 1 puff Inhalation Q12H PRN RF: 0 ProAir RespiClick 90 MCG aerosol powdr breath activated 90 mcg Inhalation BID RF: 0 albuterol sulfate [Proventil HFA] 1 PUFF HFA aerosol inhaler 200 puff Inhalation DAILY PRN RF: 0 Flovent Diskus 50 MCG blister with device 50 mcg Inhalation DAILY RF: 0 lisinopril 10 MG tablet 10 mg PO DAILY RF: 0 atorvastatin [Lipitor] 20 MG tablet 20 mg PO HS RF: 0 aspirin 325 MG tablet 325 mg PO DAILY RF: 0 Discharge Instructions Instructions: Hypertension (ED) Additional Instructions: Please follow-up with the [facility] for recheck. Please take Keflex as prescribed. Record daily blood pressures. Continue your regular medications. Return for any acute concern Medical Decision Making 73-year-old male presents from home with 2 complaints. One, he is here for suture removal of left elbow after fall and traumatic injury 2 weeks ago. At that time he suffered a lower thoracic dorsal hematoma that is slowly been resolving. Finally, he reports high blood pressure last night with associated transient chest discomfort that was brief and self resolved. No recurrence. Sutures removed without difficulty and wound appears well-appearing. The elbow slightly swollen, has had bursitis in the past, and as well has thoracic aortic grafting. He may have developing cellulitis and given the risk of hardware infection, I will place him on a brief course of Keflex to ensure good wound healing. Screening EKG and laboratories obtained. EKG is unremarkable normal sinus rhythm. Troponin is negative. Remainder of laboratories are reassuring: White blood cell count 7, hematocrit 38, platelets 243. Sodium 140, potassium 3.9, chloride 106, bicarb 22, BUN 20, creatinine 1.1, LFTs unremarkable. Patient remains symptom-free. I will have him use a diary to record blood pressures at home. He is to return if he has recurrent chest discomfort. We did discuss that he had not eaten dinner last night and this possibly had some esophageal spasm. He is stable and improved, appropriate for discharge to home. To follow[facility]up with [facility]. Finally, he does have a large posterior thoracic midline hematoma from recent injury. I will refer to general surgery as he may require an interval/deferred drainage. ECG Data Attestation: I personally reviewed and interpreted this ECG (s) as follows: Interpretation: Normal sinus rhythm with a rate of 60, the QRS is narrow, there is no ST segment elevation present. HPI General Mode of arrival: ambulatory . Date/Time Provider Initiated Documentation: 09/04/18 14:03 . Limitations to Documentation: no limitations . Information obtained by: patient . History of Present Illness 73 year old M presents to the emergency department with the chief complaint of Left elbow suture removal, patient reports transient chest pain and high bp, described as mild, Quality is described as dull, and is localized to the chest. Patient reports no radiation. Patient started experiencing this minute(s) and it has been now resolved. No exacerbating factors reported . Patient notes no other symptoms.. Patient did receive the following treatments prior to arrival, none Related Data Home Medications Medication Instructions Recorded Confirmed Flovent Diskus 50 mcg INHALATION DAILY 12/23/13 09/04/18 albuterol sulfate [Proventil HFA] 200 puff INHALATION DAILY PRN 12/23/13 09/04/18 aspirin 325 mg PO DAILY 08/17/17 09/04/18 atorvastatin [Lipitor] 20 mg PO HS 08/17/17 09/04/18 Flovent HFA 2 puff INHALATION BID #1 inhaler 10/21/17 09/04/18 ProAir RespiClick 90 mcg INHALATION BID 10/21/17 09/04/18 Serevent Diskus 1 puff INHALATION Q12H PRN disk 10/21/17 09/04/18 lisinopril 10 mg PO DAILY 11/29/17 09/04/18 cephalexin 500 mg PO TID 7 Days #21 cap 09/04/18 Previous Rx's Medication Instructions Recorded cephalexin 500 mg PO TID 7 Days #21 cap 09/04/18 Allergies Allergy/AdvReac Type Severity Reaction Status Date / Time metoprolol Allergy Severe HEART Unverified 09/04/18 14:21 PAUSED General ANNA: 3 Review of Systems Review of Systems No fever or chills. No cough. States that he is otherwise recently been well. He has a hematoma of the lower thoracic/lumbar spine which is improving. 6 systems reviewed and otherwise neg [facility] Medical History Hyperlipidemia (Acute) Asthma (Chronic) Hypertension (Chronic) Surgical History Hx of aortic aneurysm repair (Acute) Hx of aortic valve replacement (Acute) Social History Smoking/Tobacco Use Status: Never Alcohol Intake: never Drug use: Never Substance use type: does not use Do you feel safe at home: Yes Do you feel safe in your relationship?: Yes Exam Narrative Exam Narrative: GEN: awake, alert, oriented 3. Pleasant, well groomed, interact [place]. HEAD: Normocephalic, atraumatic ENT: Mucous membranes moist, oropharynx unremarkable, External ear exam unremarkable EYES: PERRL, EOMI NECK: Full ROM, no JUAN JOSE, no menigismus CHEST/RESP: Nontender, clear to auscultation bilateral, no wheeze/rhonchi/rales CARDIOVASCULAR: RRR, no murmur, rub chano. 2+ Rad pulse bilateral ABDOMEN: Soft, nontender, no mass. +Bowel sounds EXT: Full ROM, no edema, no rash. Mildly enlarged left olecranon bursa, left elbow with healing laceration, sutures in place. No sniffing surrounding erythema. Back: Resolving hematoma inferior thoracic spine with dependent ecchymosis present Neuro: Grossly normal neurologic exam, conversant, interactive. Psych: Speech fluent, thoughts congruent, affect normal
[2018-09-04 14:50] LABS: Abs Immature Grans 0.01 k/cumm (0.0-0.09); Absolute Basophil Count 0.03 k/cumm (0.0-0.2); Absolute Eosinophil Count 0.15 k/cumm (0.0-0.7); Absolute Lymphocyte Count 1.33 k/cumm (1.2-3.4); Absolute Monocyte Count 0.63 k/cumm (0.11-0.7); Absolute Neutrophil Count 4.86 k/cumm (1.2-6.7); Basophils % 0.4; Eosinophils % 2.1; HCT 38.5 % (40.0-50.0); HGB 12.8 g/dL (13.5-17.5); Immature Grans % 0.1; Mean Corp. HGB Concentration 33.2 g/dL (32.0-36.0); Mean Corpuscular Hemoglobin 28.9 pg (27.0-33.0); Mean Corpuscular Volume 86.9 fL (80-95); Mean Platelet Volume 9.6 fL (8.0-11.0); Neutrophils % 69.4; Platelet Count 243 x1000/uL (130-400); RBC 4.43 m/cumm (4.50-6.00); RBC Distribution Width 15.1 % (11.8-14.1); White Blood Cell Count 7.01 k/cumm (4.4-10.8)
[2018-09-04 15:05] LABS: ALT 25 U/L (12-78); AST 34 U/L (15-37); Albumin 3.3 g/dL (3.4-5.0); Alkaline Phosphatase 45 U/L (46-116); Anion Gap 11.3 mmol/L (3-11); BUN 20 mg/dL (7-18); Bilirubin, Total 0.6 mg/dL (0.2-1.0); CO2 22.7 mmol/L (21.0-32.0); CREATININE 1.16 mg/dL (0.70-1.30); Calcium 8.3 mg/dL (8.5-10.1); Chloride 106 mmol/L (98-107); Glucose 113 mg/dL (70-100); Potassium 3.9 mmol/L (3.5-5.1); Sodium 140 mmol/L (136-145); Total Protein 6.7 g/dL (6.4-8.2)
[2018-09-04 15:08] LABS: Troponin I < 0.02 ng/mL (0.00-0.06)
[2018-09-04 15:33] VITALS: BP 154/94; PULSE 58; RESP 16; TEMP 37; O2SAT 98
--- NOTE | 2018-09-08 12:09 | CMPROGNOTE_ITS ---
Care Management Progress Note 09/08-Dr. Akins requested assistance with a general surgery f/u in two weeks for large hematoma on back. Referral faxed to [facility] this am.
== END 2018-09-04 15:39 | disposition home or self-care (01) ==
PROVIDERS: Emergency Provider Emergency Medicine; PCP Internal Medicine
DX: S51.012D Laceration without foreign body of left elbow, subsequent encounter (principal); S20.229D Contusion of unspecified back wall of thorax, subsequent encounter; W10.8XXD Fall (on) (from) other stairs and steps, subsequent encounter; Z48.02 Encounter for removal of sutures; R07.9 Chest pain, unspecified; I10 Essential (primary) hypertension; M25.422 Effusion, left elbow
CPT/HCPCS: 36415; 80053; 93005; 99284; 83735; 84484; 85025; 93010; 99282

== ENCOUNTER → 2018-09-11 08:07 | Outpatient (BNVA) | payer MEDICARE, OTHER, SELFPAY | PROVIDERS: PCP Internal Medicine; Referring Provider Internal Medicine; Visit Provider Surgery | DX: S51.012A Laceration without foreign body of left elbow, initial encounter (principal); T79.2XXA Traumatic secondary and recurrent hemorrhage and seroma, initial encounter; W10.8XXA Fall (on) (from) other stairs and steps, initial encounter; I10 Essential (primary) hypertension | CPT/HCPCS: 99203; 99214 ==

== ENCOUNTER → 2019-03-05 09:07 | Outpatient (BNVA) | payer MEDICARE, OTHER, SELFPAY | PROVIDERS: PCP Internal Medicine; Referring Provider Internal Medicine; Visit Provider Physical Therapy Assistant | DX: Z12.11 Encounter for screening for malignant neoplasm of colon (principal) ==

== ENCOUNTER 2019-03-09 10:11 | Outpatient (REF) | payer MEDICARE, OTHER, SELFPAY ==
[2019-03-09 11:05] LABS: Hemoglobin A1C 6.1 % (4.5-6.2)
[2019-03-09 11:30] LABS: Anion Gap 8.1 mmol/L (3-11); BUN 18 mg/dL (7-18); CO2 26.9 mmol/L (21.0-32.0); CREATININE 1.34 mg/dL (0.70-1.30); Calcium 8.7 mg/dL (8.5-10.1); Calculated LDL 56 mg/dL; Chloride 105 mmol/L (98-107); Cholesterol 137 mg/dL (<200); Estimated GFR 51.97 (mL/min/1.73m2); Glucose 103 mg/dL (74-106); HDL Cholesterol 69 mg/dL (40-60); Potassium 4.5 mmol/L (3.5-5.1); Sodium 140 mmol/L (136-145); Triglyceride 60 mg/dL (<150); Vitamin B12 317 pg/mL (193-986)
== END 2019-03-09 10:31 ==
LOC: NCHCN 10:11
PROVIDERS: PCP Internal Medicine; Visit Provider Internal Medicine
DX: I10 Essential (primary) hypertension (principal); R07.89 Other chest pain; R79.89 Other specified abnormal findings of blood chemistry; J45.30 Mild persistent asthma, uncomplicated; G31.84 Mild cognitive impairment of uncertain or unknown etiology; Z95.2 Presence of prosthetic heart valve; Z13.1 Encounter for screening for diabetes mellitus
CPT/HCPCS: 80048; 80061; 82607; 83036

== ENCOUNTER 2019-03-09 10:45 | Outpatient (CLI) | payer MEDICARE, OTHER, SELFPAY ==
--- NOTE | 2019-03-09 10:30 | DI.CT_ITS ---
EXAM: CT CHEST PE CTA CLINICAL HISTORY: ATYPICAL CHEST PAIN, R07.89, ? PE TECHNIQUE: Post IV contrast during the arterial phase. Axial CT angiography was performed with multi-slice acquisition and multi-planar and/or 3D reconstruc tions. COMPARISON: CT CHEST/ABD/PEL W from 08/21/2018 FINDINGS: An aortic valve prosthesis is again noted. There is a small amount of fluid between the left atrium and aorta which appears unchanged from the previous exam. There is no evidence of aortic dissection or pulmonary emboli. There is respiratory motion at the lung bases. There is a trace left pleural effusion. There are increased densities at the lung bases likely reflecting atelectasis. No focal a ericka of consolidation is seen. Sternal wires are again noted. The visualized portions of the upper a bdominal organs are unremarkable. IMPRESSION: No evidence of pulmonary emboli. There is bibasilar atelectasis and a tiny left pleural effusion.
[2019-03-09] MEDS: Omnipaque 350 MG/ML 100 ML BTL IJ (11:46)
== END 2019-03-09 11:05 ==
PROVIDERS: PCP Internal Medicine; Visit Provider Internal Medicine
DX: R07.89 Other chest pain (principal); J90 Pleural effusion, not elsewhere classified; J98.11 Atelectasis
CPT/HCPCS: 71275; J3490

== ENCOUNTER 2019-03-29 06:11 | Day surgery (SDC) | payer MEDICARE, OTHER, SELFPAY ==
[2019-03-29 06:29] VITALS: BP 121/83; PULSE 67; RESP 16; TEMP 36.6; O2SAT 94
--- NOTE | 2019-03-29 06:32 | W.COLOREPORT ---
Date of service: 03/29/19 Time of Service: 07:30 Colonoscopy Report Date of procedure: 03/29/19 Pre-op diagnosis general: Colon Cancer Screening Post-op diagnosis procedure note: other (Colorectal polyps, diverticulosis, internal hemorrhoids) Procedure: Colonoscopy with polypectomy Surgeon: Mariah Calixto Anesthesia proc note operative: other (General/ ASA 2/Sheng Scott, ROSENDO) Estimated blood loss (mL): 3 Pathology: other (Ascending polyp x2, transverse polyp) Complications: None Disposition: same day Indications: 73 y/o male with history of asthma presents for colonoscopy screening pre-op. His last screening was in 2007, which was unremarkable. He denies a family history of colon cancer. He denies any changes in bowel habits including bloody or black tarry stools, abdominal pain, diarrhea or constipation. He denies constitutional symptoms. Denies use of marijuana or any other recreational or illegal drugs. Risks, benefits and complications have been reviewed. Complications include but are not limited to bleeding, pain, perforation, missed small lesion/polyp, sore throat, aspiration and adverse reaction to the medications. Questions were entertained and answered to their satisfaction and they wished to proceed. No guarantees were given or implied. Prep: Miralax/Dulcolax Procedure Start Time: 07:30 Procedure End Time: 07:55 Retraction Time: 16 minutes Findings: 3 small polyps Moderate diverticulosis Grade 1 internal hemorrhoids Procedure Description: After informed consent was obtained the patient was taken to the procedure room and placed in a left decubitous position. Monitors were applied and a time out was done. The patients name, date of , procedure, allergies to medications and metal in their body was reviewed. The patient was then sedated. Once sedated and comfortable a rectal exam was done. External exam was normal. Internal exam revealed a normal sphincter tone and no palpable masses. The prostate felt smooth. The scope was then introduced and retro-flexed. Grade 1 internal hemorrhoids were identified. The scope was then advanced to the cecum without difficulty. The TI and appendiceal orifice were identified. The prep was adequate. The scope was then slowly retracted over 16 minutes back into the rectum. Polyps were removed with cold forceps in the ascending colon x 2 and transverse colon. There was moderate diverticulosis of the descending and sigmoid colon. The scope was removed and the patient was woken up and taken back to Same day surgery in stable condition. The patient tolerated the procedure well and there were no immediate complications. Follow up: The patient should follow up in 3-5 years unless they develop changes in bowel habits or other new gastrointestinal complaints.
--- NOTE | 2019-03-29 06:33 | W.PM.DSUDISC ---
Discharge Plan Disposition Patient Disposition: HOME Condition: Good Discharge Details Reason For Visit: Colon Cancer Screening Attending Provider: Mariah Calixto Primary Care Provider: Casey Michael Home Meds and New Rx's Prescriptions: Continued Serevent Diskus 50 MCG blister with device 1 puff Inhalation Q12H PRN RF: 0 ProAir RespiClick 90 MCG aerosol powdr breath activated 90 mcg Inhalation BID RF: 0 Flovent Diskus 50 MCG blister with device 50 mcg Inhalation DAILY RF: 0 atorvastatin [Lipitor] 20 MG tablet 20 mg PO HS RF: 0 aspirin 325 MG tablet 325 mg PO DAILY RF: 0 Discontinued polyethylene glycol 3350 17 gram/dose powder 238 g PO ONCE Qty: 238 RF: 0 bisacodyl [Dulcolax (bisacodyl)] 5 mg tablet,delayed release (DR/EC) 5 mg PO ONCE Qty: 4 RF: 0 Discharge Instructions Instructions: Diverticulosis (DC), Colorectal Polyps (DC) Additional Instructions: Findings: 3 polyps Diverticulosis Internal hemorrhoids Follow up: 3-5 years Please call if you develop: fevers >101.5 Nausea or Vomiting Abdominal pain that is not transient DAY SURGERY UNIT POST ENDOSCOPY INSTRUCTIONS 1. Because there will be medication in your system for the next 24 hours, you may feel a little sleepy. Your coordination will be affected. Therefore: a. Do not drive or operate dangerous equipment for 24 hours. b. Do not drink alcohol beverages for 24 hours (not even beer). c. Plan to go home and rest for the day. 2. Generally there are no restrictions on your activity after a day or so has gone by, but you may feel a bit fatigued for a few days. 3 After you arrive home you may have a light meal and return to a normal diet as you can tolerate it without feeling sick to your stomach. 4. After surgery, you may feel pain or discomfort. This should be only transient, but if it persists please contact your doctor. 5. If there are any questions regarding the findings of your procedure, please feel free to contact your doctor. 6. If you are unable to contact your doctor with a problem, contact the hospital at [phone]. 7. Continue all your regular medications unless directed otherwise. I understand the above instructions and have no questions. Signature of Patient or Responsible Adult Escort Date/Time Name of Responsible Adult Escort Signature of Nurse Date/Time Activity:: Activity as Tolerated Diet:: High Fiber Diet Discharge Orders Discharge Orders: Discharge Order (Routine); Ordered 03/29/19 Ordered By: Mariah Calixto DS: Diagnosis Discharge Diagnosis (1) S/P colonoscopy: Status: Acute
[2019-03-29] MEDS: Lactated Ringers 1,000 ML 80 ML IV (06:53)
--- NOTE | 2019-03-29 07:42 | BOWEL_PTH ---
PATIENT: Jose Diaz LOC: [facility] U#:[id number] AGE/SX: 73/M ROOM: RE03/29/[address]: Mariah Calixto MD : 1945 BED: DIS: 03/29/2019 SPEC #: [id number] RECD: 03/29/19 12:28 STATUS: ZOHAIB REQ #: [id number] RAN: 03/29/19 07:[address]: Mariah Calixto DEPT: Surgical Specimen RECD BY: Candi Asencio ENTERED: 03/29/19 12:30 SP TYPE: Bowel OTHR DR: Casey Michael Tissues: 1 - BIOPSY BOWEL 2 - BIOPSY BOWEL Procedures: GROSS AND MICRO LEVEL 4 Comments: [id number]
[2019-03-29 08:44] VITALS: BP 121/77; PULSE 63; RESP 18; TEMP 36.3; O2SAT 94
== END 2019-03-29 09:20 | disposition home or self-care (01) ==
PROVIDERS: PCP Internal Medicine; Visit Provider Surgery
PROC: 0DJD8ZZ Inspection of Lower Intestinal Tract, Via Natural or Artificial Opening Endoscopic (ICD-10-PCS; CPT 45378; principal; 2019-03-29 07:30)
DX: Z12.11 Encounter for screening for malignant neoplasm of colon (principal); D12.2 Benign neoplasm of ascending colon; K63.5 Polyp of colon; K57.30 Diverticulosis of large intestine without perforation or abscess without bleeding; K64.0 First degree hemorrhoids; I10 Essential (primary) hypertension
CPT/HCPCS: 45380; 88305

== ENCOUNTER 2020-02-15 16:04 | Outpatient (REF) | payer MEDICARE, OTHER, SELFPAY ==
[2020-02-15 21:14] LABS: Anion Gap 8.2 mmol/L (3-11); BUN 18 mg/dL (7-18); CO2 25.8 mmol/L (21.0-32.0); CREATININE 1.32 mg/dL (0.70-1.30); Chloride 106 mmol/L (98-107); Estimated GFR 52.73 (mL/min/1.73m2); Glucose 97 mg/dL (74-106); Potassium 4.5 mmol/L (3.5-5.1); Sodium 140 mmol/L (136-145)
== END 2020-02-15 16:24 ==
LOC: NCHCN 16:04
PROVIDERS: PCP Internal Medicine; Visit Provider Internal Medicine
DX: R73.03 Prediabetes (principal); N18.30 Chronic kidney disease, stage 3 unspecified
CPT/HCPCS: 80048; 83036

== ENCOUNTER 2021-01-16 14:48 | Outpatient (REF) | payer MEDICARE, OTHER, SELFPAY ==
[2021-01-16 21:24] LABS: Anion Gap 6.5 mmol/L (3-11); BUN 27 mg/dL (7-18); CO2 27.5 mmol/L (21.0-32.0); CREATININE 1.3 mg/dL (0.70-1.30); Calcium 9.1 mg/dL (8.5-10.1); Chloride 107 mmol/L (98-107); Estimated GFR 53.53 (mL/min/1.73m2); Glucose 89 mg/dL (74-106); Sodium 141 mmol/L (136-145)
== END 2021-01-16 14:49 | disposition home or self-care (01) ==
LOC: NCHCN 14:48
PROVIDERS: PCP Internal Medicine; Visit Provider Internal Medicine
DX: R73.03 Prediabetes (principal); I10 Essential (primary) hypertension
CPT/HCPCS: 80048; 83036

== ENCOUNTER 2021-07-16 20:32 | Outpatient (REF) | payer MEDICARE, OTHER, SELFPAY ==
[2021-07-16 16:46] LABS: HCT 46.6 % (40.0-50.0); HGB 15.2 g/dL (13.5-17.5); MCHC 32.6 % (32.0-36.0); MCV 88.8 fL (80-95); MPV 10.8 fL (8.0-11.0); Platelet Count 216 10^3/uL (130-400); RBC 5.25 10^6/uL (4.36-5.78); RDW 13.4 % (11.8-14.1); RDW-SD 43.9 fL; WBC 6.55 10^3/uL (4.4-10.8)
[2021-07-17 16:51] LABS: Rheumatoid Factor <8.6 IU/mL (<12.0)
[2021-07-18 09:38] LABS: Cyclic Citrullinated Peptide <2.5 U/mL (<5.0)
[2021-07-18 11:56] LABS: Lyme Ab w Rflx to Lyme Confirm Negative (Negative)
[2021-07-19 18:21] LABS: Anaplasma phagocytophilum Negative (Negative); B. miyamotoi PCR Negative (Negative); Babesia divergens/MO-1 Negative (Negative); Babesia duncani Negative (Negative); Babesia microti Negative (Negative); Ehrlichia chaffeensis Negative (Negative); Ehrlichia ewingii/canis Negative (Negative); Ehrlichia muris eauclairensis Negative (Negative)
== END 2021-07-16 20:33 | disposition home or self-care (01) ==
LOC: NCHCN 20:32
PROVIDERS: PCP Internal Medicine; Visit Provider Internal Medicine
DX: M19.90 Unspecified osteoarthritis, unspecified site (principal); M17.0 Bilateral primary osteoarthritis of knee
CPT/HCPCS: 85027; 86200; 87798; 86431; 86618

== ENCOUNTER 2022-01-15 13:04 | Outpatient (REF) | payer MEDICARE, OTHER, SELFPAY ==
[2022-01-15 19:36] LABS: BUN 27 mg/dL (7-18); CREATININE 1.3 mg/dL (0.70-1.30); Calcium 8.8 mg/dL (8.5-10.1); Chloride 105 mmol/L (98-107); Estimated GFR 56.23 (mL/min/1.73m2); Glucose 100 mg/dL (74-106); Potassium 4.6 mmol/L (3.5-5.1); Sodium 139 mmol/L (136-145)
[2022-01-15 19:45] LABS: Hemoglobin A1C 6.2 % (<5.7)
== END 2022-01-15 13:05 | disposition home or self-care (01) ==
LOC: NCHCN 13:04
PROVIDERS: PCP Internal Medicine; Visit Provider Internal Medicine
DX: I12.9 Hypertensive chronic kidney disease with stage 1 through stage 4 chronic kidney disease, or unspecified chronic kidney disease (principal); N18.30 Chronic kidney disease, stage 3 unspecified; R73.03 Prediabetes; J45.30 Mild persistent asthma, uncomplicated; M17.0 Bilateral primary osteoarthritis of knee; Z95.2 Presence of prosthetic heart valve
CPT/HCPCS: 80048; 83036

== ENCOUNTER 2022-04-04 16:51 | Outpatient (REF) | payer MEDICARE, OTHER, SELFPAY ==
[2022-04-04 21:41] LABS: HCT 47.7 % (40.0-50.0); HGB 15.5 g/dL (13.5-17.5); MCH 29.4 pg (27.0-33.0); MCHC 32.5 % (32.0-36.0); MCV 90 fL (80-95); MPV 10.8 fL (8.0-11.0); Platelet Count 194 10^3/uL (130-400); RBC 5.28 10^6/uL (4.36-5.78); RDW 13.6 % (11.8-14.1); WBC 7.45 10^3/uL (4.4-10.8)
[2022-04-04 21:48] LABS: Anion Gap 6.9 mmol/L (3-11); BUN 27 mg/dL (7-18); CO2 28.1 mmol/L (21.0-32.0); CREATININE 1.5 mg/dL (0.70-1.30); Calcium 8.8 mg/dL (8.5-10.1); Chloride 104 mmol/L (98-107); Estimated GFR 47.36 (mL/min/1.73m2); Glucose 101 mg/dL (74-106); Potassium 4.8 mmol/L (3.5-5.1); Sodium 139 mmol/L (136-145)
== END 2022-04-04 16:52 | disposition home or self-care (01) ==
LOC: NCHCN 16:51
PROVIDERS: PCP Internal Medicine; Visit Provider Family Medicine
DX: Z01.818 Encounter for other preprocedural examination (principal)
CPT/HCPCS: 80048; 85027